=== PATIENT | male | born 1975 | race Caucasian/White ===

== ENCOUNTER 2023-01-16 10:09 | Emergency (ER) | payer OTHER, SELFPAY ==
--- NOTE | ~2023-01-16 | XR_ITS ---
EXAMINATION: XR CHEST single view CLINICAL INFORMATION: Left rib pain COMPARISON: October 2007. TECHNIQUE: Frontal view of the chest was obtained. 11:35 AM. FINDINGS: There is lucency in the left apex with air-fluid level projecting toward the left base. Findings suspicious for left hydropneumothorax. CT evaluation would be recommended. No right-sided airspace consolidation. Pulmonary vascularity does not appear congested. There appear to be fractures of the left scapula at the level of the glenoid. There is a posterior fracture of the left seventh rib. There may be an acute fracture of a more superior rib. XR/XR chest 1V IMPRESSION: Findings appearing consistent with a left hydropneumothorax. Fractures of the left scapula at the level of the glenoid fossa. Posterior fracture of the left seventh rib. There may be an acute fracture of a more superior rib near the apex. CT evaluation would be recommended.
[2023-01-16 11:06] VITALS: BP 121/69; PULSE 75; RESP 16; TEMP 36.3; O2SAT 96; BMI 20.9
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
[2023-01-16] MEDS: fentaNYL citrate/PF 100 MCG/2 ML VIAL 25 MCG IVPUSH (14:20)
[2023-01-16 14:21] LABS: MANUAL DIFF FLAG NO
[2023-01-16] MEDS: Lactated Ringers 1,000 ML 999 ML IV (14:21)
[2023-01-16] MEDS: Ketorolac Tromethamine 15 MG/ML VIAL IVPUSH (14:21)
[2023-01-16 14:23] LABS: Basophils Percent Auto 0.3 % (0-2); Eosinophils Percent Auto 0.1 % (0-4); Hematocrit 45.4 % (42.0-52.0); Hemoglobin 15.5 g/dl (14.0-18.0); Imm Gran Abs Auto 0.08 X10*3/uL (0.00-0.03); Imm Gran Pct Auto 0.6 % (0.0-0.4); Lymphocytes Absolute Auto 0.9 X10*3/uL (1.2-4.9); Lymphocytes Percent Auto 7.6 % (20-40); Mean Corpuscular HGB Conc 34.1 g/dl (31.0-36.0); Mean Corpuscular Volume 93.8 fL (80.0-98.0); Mean Platelet Volume 9.6 fL (9.4-12.4); Monocytes Absolute Auto 0.7 X10*3/uL (0.1-1.2); Monocytes Percent Auto 5.8 % (2-11); Neutrophils Absolute Auto 10.7 x10*3/uL (2.0-8.3); Neutrophils Percent Auto 85.6 % (45-73); Platelet Count 284 X10*3/uL (160-400); Red Blood Count 4.84 X10*6/uL (4.60-5.80); Red Cell Distribution Width 13.2 % (11.0-16.0); White Blood Count 12.4 X10*3/uL (4.8-10.8)
[2023-01-16 14:26] VITALS: BP 157/92; PULSE 95; RESP 16; O2SAT 98
[2023-01-16 14:30] LABS: Prothrombin Time 10.9 SEC (10.0-13.1)
[2023-01-16 14:32] LABS: COVID-19 Test Negative (Negative); IDNOW Serial# BCCEAD1C
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
--- OUTSIDE RECORDS SUMMARY | 2023-01-16 14:36 | XMS_ITS | Continuity of Care Document ---
Author Name Unknown Organization [facility] Address [address] [place] [address] [address] [place] [address]- Care Team Providers Care Composition Siding Worker Name Role Phone Michael Cortez DO Primary Care Physician Encounter [facility] Date(s): 09/08/20 - 10/08/[address] [place], [place] [address] Attending Physician: Jone Tracy Admitting Physician: AdmtrJone Referring Physician: AdmtrJone Allergies, Adverse Reactions, Alerts [...] bard Unknown YOAN:No Information Assigning Authority: FDA [id number] 1 C APSURE Unknown YOAN:No Information Assigning Authority: FDA
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
--- OUTSIDE RECORDS SUMMARY | 2023-01-16 14:36 | XMS_ITS | Continuity of Care Document ---
Author Name Unknown Organization [facility] Address [address] [place] [address] [address] [place] [address]- Care Team Providers Care Carport Erector Name Role Phone Michael Cortez DO Primary Care Physician [place] [facility] [place] - 09/15/[address] [place] [address]- Encounter Diagnosis Left inguinal hernia(Discharge Diagnosis) - 09/08/20 Postop check(Discharge Diagnosis) - 09/08/20 Attending Physician: Ismael Vallejo Referring Physician: Michael Cortez DO Allergies, Adverse [...] Pelvic fracture(Confirmed) 06/14/12 Active Tennis elbow(Confirmed) Active Diagnosis Diagnosis Type Effective Dates Health Status Cl inical Service Informant Left inguinal hernia Discharge Diagnosis 09/08/20 Postop check Discharge Diagnosis 09/08/20 Vital Signs Most recent to oldest [Reference Range]: 1 Height 185.42 cm (09/08/20 3:06 PM) Pulse Rate [55-90 bpm] 85 bpm (09/08/20 3:06 PM) Blood Pressure [90-138/55-84 mm Hg] 132/ 77mm Hg (09/08/20 3:06 PM) Temperature [96.8-100.4 DegF] 98.1 DegF (09/08/20 3:06 PM) Blood pressure sites Arm, left (09/08/20 3:06 PM) Temperature Route Femoral (09/08/20 3:06 PM) Social History Social History Type Response Smoking Status Never smoker entered on: 09/03/14 Sex Medical Equipment Implanted Date:08/24/20Target Site:Groin Left Description Quantity MRI Company Model 1 bard Unknown YOAN:No Information Assigning Authority: FDA [id number] 1 C APSURE Unknown YOAN:No Information Assigning Authority: FDA
--- OUTSIDE RECORDS SUMMARY | 2023-01-16 14:36 | XMS_ITS | Continuity of Care Document ---
Author Name Unknown Organization [facility] Address [address] [place] [address] [address] [place] [address]- Care Team Providers Care Sustainability Coach Name Role Phone Michael Cortez DO Primary Care Physician Encounter [facility] Date(s): 08/24/20 - 09/23/20 [facility] [address] [place] [address]- Allergies, Adverse Reactions, Alerts Substance Reaction Severity [...] bard Unknown YOAN:No Information Assigning Authority: FDA [id number] 1 C APSURE Unknown YOAN:No Information Assigning Authority: FDA
--- NOTE | 2023-01-16 15:08 | PC.NURSE ---
nurse to nurse report to Albino VALERO at [facility] [place] ED
[2023-01-16 17:05] LABS: Alanine Aminotransferase 24 U/L (0-40); Albumin Level 3.1 g/dL (3.5-5.0); Alkaline Phosphatase 72 U/L (39-117); Anion Gap 13 (12-20); Aspartate Amino Transferase 30 U/L (5-37); Bilirubin Direct 0.3 mg/dL (0.0-0.5); Bilirubin Total 1.2 mg/dL (0.0-1.0); Blood Urea Nitrogen 14 mg/dL (9-16); Calcium 8.2 mg/dL (8.4-10.2); Carbon Dioxide 24 mmol/L (22-29); Chloride 108 mmol/L (96-108); Creatinine Clr Calc Pharmacy 145.8; Estimated Glomerular Filt Rate > 60; Glucose Random 102 mg/dL (60-115); Lipase 16 U/L (8-78); Magnesium 1.5 mg/dL (1.6-2.6); Potassium 4.1 mmol/L (3.3-5.1); Sodium 141 mmol/L (135-145); Total Protein 5.4 g/dL (6.5-8.0)
== END 2023-01-16 15:10 | disposition other institution (70) ==
LOC: HO.ED 14:35
PROVIDERS: Physician Assistant; Emergency Provider Emergency Medicine; PCP Internal Medicine
DX: S27.0XXA Traumatic pneumothorax, initial encounter (principal); S22.32XA Fracture of one rib, left side, initial encounter for closed fracture; S42.142A Displaced fracture of glenoid cavity of scapula, left shoulder, initial encounter for closed fracture; S40.212A Abrasion of left shoulder, initial encounter; S50.312A Abrasion of left elbow, initial encounter; S60.512A Abrasion of left hand, initial encounter; S90.32XA Contusion of left foot, initial encounter; S90.112A Contusion of left great toe without damage to nail, initial encounter; V28.09XA Other motorcycle driver injured in noncollision transport accident in nontraffic accident, initial encounter; Z20.822 Contact with and (suspected) exposure to COVID-19; Y93.89 Activity, other specified; Y92.414 Local residential or business street as the place of occurrence of the external cause; Y99.9 Unspecified external cause status
CPT/HCPCS: 71045; 80048; 80076; 83690; 83735; 85025; 85610; 87635; 96374; 96375; 99283; 99284; J1885; J3010